=== PATIENT | female | born 1950 | race Caucasian/White ===

== ENCOUNTER 2017-01-28 06:29 | Day surgery (SDC) | payer BC ==
[~2017-01-28 06:29] MED LIST: Acetaminophen TAB* 325 MG PO PRN; Buffered Lidocaine 0.9% SYRIN* 5 ML/SYR SYRINGE INTRADERM ONE; mitoMYcin 0.2 MG (0.02%) in Sterile Water for Inj* 1 ML OPHTHALMIC SCH
[2017-01-28] MEDS ORDERED: Proparacaine 0.5% OPHTH.SOL* 15 ML BTL ONE (06:38)
[2017-01-28] MEDS ORDERED: Lidocaine 2% PF* 10 ML AMP ONE (07:03)
[2017-01-28] MEDS ORDERED: Hyaluronidase OVINE* 200 UNIT/ML ML SUBCUT ONE (07:04)
[2017-01-28] MEDS ORDERED: Acetylcholine 1:100 OPTH* OPHTH.SOLN ONE (07:12)
[2017-01-28] MEDS ORDERED: Atropine 1% OPHTH.SOL* 2 ML BOT - 2 ML ONE (07:12)
[2017-01-28] MEDS ORDERED: BSS OPTH.SOL* BTL ONE (07:12)
[2017-01-28] MEDS ORDERED: Triamcinolone Acetonide* 40 MG/ML 1 ML VIAL ONE (07:12)
[2017-01-28] MEDS ORDERED: Lidocaine 2% EPI 1:200000 MPF* 20 ML VIAL ONE (07:13)
[2017-01-28] MEDS ORDERED: fentaNYL* 50 MCG/ML 2 ML VIAL (100 MCG VIAL) ONE (07:31)
[2017-01-28] MEDS ORDERED: Midazolam* 1 MG/ML 2 ML VIAL (2 MG) ONE ×2 (07:31→08:01)
[2017-01-28 08:50] VITALS: BP 121/62
--- NOTE | 2017-01-28 22:00 | OP ---
DATE OF OPERATION: 01/28/17 - [facility] DATE OF : 52 SURGEON: Ruperto De Guzman MD ANESTHESIA: Local with MAC. PREOPERATIVE DIAGNOSIS: Uncontrolled glaucoma, right eye. POSTOPERATIVE DIAGNOSIS: Uncontrolled glaucoma, right eye. OPERATIVE PROCEDURE: Trabeculectomy, right eye. COMPLICATIONS: None. DESCRIPTION OF PROCEDURE: The patient was given retrobulbar anesthesia in the operating room, 50/50 mixture of 0.75 Marcaine with 2% lidocaine with epinephrine, 4 cc injected into the muscle cone without difficulty. A 6-0 silk suture traction was placed through the superior limbus and the eye rotated inferiorly. A fornix- based conjunctival peritomy was performed with Stewart scissors from the 10 to 12 o'clock position. Dissection carried down to the bare sclera. Mitomycin-C 0.2 mg/mL placed in the sub-Tenon's for 90 seconds and thoroughly irrigated. A half scleral thickness triangular limbal based scleral flap was created using the crescent blade. Anterior chamber was entered using a 3 mm Keratome through the flap. A paracentesis was made at the 8 o'clock position. Miochol instilled into the anterior chamber. Small amount of DisCoVisc, Mary Jane punch used to make a 3 x 1 mm trabecular block. The flap was closed using three 10-0 nylon sutures and attention adjusted for proper fluid flow. The conjunctiva was then closed using a combination of running locking 10-0 nylon suture at the limbus and 10-0 Vicryl suture. All wounds were checked and found to be water tight. Sub-Tenon's Kenalog 40 mg/mL 1 mL was injected in the inferior fornix. Topical atropine and Maxitrol and the eye was entirely packed after removal of the traction suture. [id number] #: [id number] MTDD
== END 2017-01-28 09:13 | disposition home or self-care (01) ==
LOC: OREAST 06:29
PROVIDERS: ATTEND Specialist
DX: H40.89 Other specified glaucoma (principal); Z88.6 Allergy status to analgesic agent; Z88.0 Allergy status to penicillin
CPT/HCPCS: A9270-GY; J2001; J2250; J3010; J3301; J3471; J9280